=== PATIENT | male | born 1960 | race Asian ===

== ENCOUNTER 2018-07-06 08:17 | Day surgery (SDC) | payer OTHER, SELFPAY ==
[2018-07-06] VITALS (7 sets, daily range): BP systolic 103–126; BP diastolic 74–86; PULSE 62–80; RESP 14–16; TEMP 36.1–36.2; O2SAT 94–98; BMI 29.5
--- NOTE | 2018-07-06 09:34 | PM.HP.1 ---
History of Present Illness Date Patient Seen: 07/06/18 Time Patient Seen: 09:35 Chief complaint: [id number] SCREENING COLONOSCOPY Narrative: Colorectal cancer screening low risk Patient History Medical History (Updated 07/06/18 @ 09:35 by Josefina Oakes MD) Gout (Acute) Sleep apnea with use of continuous positive airway pressure (CPAP) (Acute) Social History household members: spouse Family & Social History Social History: household members spouse Meds Home Medications Medication Instructions Recorded Confirmed Type Tylenol 07/05/18 History alfuzosin 10 mg PO DAILY 07/05/18 07/05/18 History allopurinol 300 mg PO DAILY 07/05/18 07/05/18 History diphenhydramine HCl 25 mg PO PRN PRN 07/05/18 07/05/18 History fluticasone propionate spray INTRANASAL DAILY PRN 07/05/18 History indomethacin 25 mg PO PRN 07/05/18 History multivitamin 07/05/18 History naproxen 500 mg PO PRN 07/05/18 History nystatin-triamcinolone 07/05/18 History Allergies Allergy/AdvReac Type Severity Reaction Status Date / Time No Known Drug Allergies Allergy Verified 07/06/18 08:37 Exam Vital Signs (past 8 hours): - 07/06/18 08:37 Temperature 97.1 F L Pulse Rate 80 Respiratory Rate 16 Blood Pressure 123/81 Pulse Oximetry 98 Oxygen Delivery Method Room Air Narrative Exam Narrative: Oropharynx free of lesions Chest clear to auscultation percussion Cardiac exam reveals no S3 or murmur Assessment & Plan Assessment & Plan narrative: Assessment need for colorectal cancer screening. Low risk but last colonoscopy 8-9 years ago Plan colonoscopy. Risks, benefits, alternatives have been explained.
--- NOTE | 2018-07-06 09:36 | PM.OP.ENDO ---
Operative Date/Time/Diagnoses Date of procedure: 07/06/18 Time of procedure: 09:36 Pre-op diagnosis: See indication and findings Procedure & Clinicians Study performed: Colonoscopy Indications: Screening Surgeon: Josefina Oakes Procedure Notes Procedure in detail: After informed consent was obtained the patient was in the left lateral decubitus position. The video colonoscope was introduced into the rectum and slowly advanced cecum. On slow withdrawal mucosa was carefully examined. The scope was removed. The patient tolerated the procedure well. Blood loss none Complications none Medications Total sedation time 23 minutes Versed 6 mg fentanyl 100 mg IV titration Findings 1. Normal colonoscopy to cecum Patient does not need follow-up colonoscopy for 10 years.
[2018-07-06] MEDS: MIDAZOLAM 5 MG/5 ML VIAL IV (09:52)
[2018-07-06] MEDS: fentaNYL 250 MCG/5 ML INJ IV (09:53)
== END 2018-07-06 10:45 ==
LOC: ENDO 08:18
PROVIDERS: PCP Preventive Medicine Public Health & General Preventive Medicine; Visit Provider Internal Medicine Gastroenterology
PROC: 0DJD8ZZ Inspection of Lower Intestinal Tract, Via Natural or Artificial Opening Endoscopic (ICD-10-PCS; CPT 45378; principal; 2018-07-06 09:30)
DX: Z12.11 Encounter for screening for malignant neoplasm of colon (principal); G47.33 Obstructive sleep apnea (adult) (pediatric)
CPT/HCPCS: 45378; J2250; J3010

== ENCOUNTER → 2018-09-09 07:47 | Outpatient (CLI) | payer OTHER, SELFPAY ==
--- NOTE | 2018-09-09 | DI.ECHO.S_ITS ---
[facility] +---------+ [facility] +---------+ : : [address] : [address] [address] : : : : [id number] : : : : Phone: [phone] Echocardiogram Report + + :Name: TEMITOPE BENNETT V Study Date: 09/09/2018 Height: 68 in : :[facility] Exam Location: [place] Weight: 170 lb : : Gender: Male BSA: 1.9 m2 : :: 1960 Age: 58 yrs BP: 130/100 mmHg: :Reason For Study: Murmur/ TIA : : Performed By: Marlene Page : :Referring: SHRUTHI TRIVEDI : + + Interpretation Summary The ejection fraction is estimated to be 50-55%. There is no significant valvular heart disease. Procedure: A two-dimensional transthoracic echocardiogram with color flow and Doppler was performed. The study quality was technically adequate. There is no prior echocardiogram noted for this patient. The patient was in normal sinus rhythm during the exam. Left Ventricle: The left ventricle is normal in size, wall thickness, and systolic function without any focal wall motion abnormalities. The ejection fraction is estimated to be 50-55%. There are no obvious focal wall motion abnormalities noted but poor endocardial definition reduces the sensitivity for the detection of such. Diastolic parameters suggest probable normal left ventricular diastolic function and normal filling pressures. Right Ventricle: The right ventricle is borderline dilated. The right ventricular systolic function is normal. Atria: The left atrium is mildly dilated. Right atrial size is normal. There is no Doppler evidence for an interatrial shunt. Mitral Valve: The mitral valve is normal in structure and function. There is trace mitral regurgitation. Aortic Valve: The aortic valve is trileaflet. The aortic valve opens well. No aortic regurgitation is present. Tricuspid Valve: The tricuspid valve is normal in structure and function. There is a trace or physiologic amount of tricuspid regurgitation. The right ventricular systolic pressure is estimated to be at least 18 mmHg based on an estimated right atrial pressure of 3 mm Hg. Pulmonic Valve: The pulmonic valve is not well seen, but is grossly normal. There is a trace or physiologic amount of pulmonic regurgitation. Great Vessels: The aortic root is normal size. The ascending aorta is normal in size. The pulmonary artery is normal size. The IVC is of normal diameter and collapses greater than 50% with a sniff. This suggests a low right atrial pressure of 3 mm Hg. Pericardium/ Pleura There is no pericardial effusion. There is no pleural effusion. MMode/2D Measurements & Calculations LVIDd: 4.9 cm Ao root diam: 3.6 cm LVIDs: 3.5 cm asc Aorta Diam: 3.2 cm FS: 27.7 % EPSS: 0.35 cm IVSd: 0.73 cm LVPWd: 0.80 cm LV pearl. diameter/BSA (cm/m^2): 2.6 LV sys. diameter/BSA (cm/m^2): 1.8 LA A2 area: 22.2 cm2 RA long axis: 4.8 cm LA A4 area: 20.9 cm2 RA area: 17.2 cm2 LA length (vol): 5.6 cm RA vol: 52.8 ml LA vol: 71.0 ml RA : 27.7 ml/m2 LA vol index: 37.2 ml/m2 IVC diam: 1.6 cm RVD1 (basal): 4.5 cm RVD2 (mid): 3.7 cm TAPSE: 1.8 cm Doppler Measurements & Calculations Ao V2 max: 118.2 cm/sec LVOT Max Amilcar: 72.8 cm/sec Ao V2 mean: 84.9 cm/sec LV V1 max P.1 mmHg Ao max P.6 mmHg LV V1 VTI: 13.8 cm Ao mean P.1 mmHg sev ratio: 0.54 Ao V2 VTI: 25.4 cm MV E max amilcar: 46.9 cm/sec TR max amilcar: 190.5 cm/sec MV A max amilcar: 54.4 cm/sec TR max P.5 mmHg MV E/A: 0.86 PA V2 max: 48.4 cm/sec Med Peak E' Amilcar: 6.7 cm/sec PA V2 mean: 34.9 cm/sec E/E' med: 7.0 PA mean P.53 mmHg Lat Peak E' Amilcar: 8.2 cm/sec PA Accel Time: 0.12 sec E/E' lat: 5.8 E/e' average: 6.4 MV P1/2t: 44.6 msec MV P1/2t max amilcar: 46.9 cm/sec MVA(P1/2t): 4.9 cm2 Reading Physician:09:16 AM
== END ==
PROVIDERS: PCP Preventive Medicine Public Health & General Preventive Medicine; Visit Provider Physician Assistant
DX: R01.1 Cardiac murmur, unspecified (principal); G45.9 Transient cerebral ischemic attack, unspecified
CPT/HCPCS: 93306